=== PATIENT | male | born 1995 | race Two or more races ===

== ENCOUNTER 2017-03-30 16:25 | Emergency (ER) | payer OTHER ==
[~2017-03-30] VITALS: Ht 177.8 cm; Wt 77.1 kg
--- NOTE | 2017-03-30 16:32 | NUR ---
PT BIBRA TO ER BED 11 ACCOMP[address]IED BY PD. HERE FOR MEDICAL AND PSYCH EVAL. PER REPORT, AGRESSIVE HAVING SUICIDAL THOUGHTS YESTERDAY. PT IS DENIES ALLEGATION. ADMITS TO HEROIN AND METH USE. DENIES PAIN. STABLE VITALS. AWAITING MD MCCOLLUM.
--- NOTE | 2017-03-30 16:47 | NUR ---
INDIRA THOMSON AT BEDSIDE FOR EVAL.
--- NOTE | 2017-03-30 17:13 | NUR ---
[employer] AIDE AT BEDSIDE FOR BLOOD DRAW.
[2017-03-30 17:26] LABS: BASOPHILS % (AUTO) 0.7 % (0.0-2.0); EOSINOPHILS # (AUTO) 0.2 /CMM (0.0-0.7); EOSINOPHILS % (AUTO) 2.3 % (0.0-6.0); HEMATOCRIT 47 % (39-51); HEMOGLOBIN 15.8 g/dL (13.5-17.5); LYMPHOCYTES # (AUTO) 1.9 /CMM (0.8-4.8); LYMPHOCYTES % (AUTO) 27.1 % (20.0-44.0); MEAN CORPUSCULAR HEMOGLOBIN 31 PG (26.0-33.0); MEAN CORPUSCULAR HGB CONC 34 g/dl (31.0-36.0); MEAN CORPUSCULAR VOLUME 91 fL (80-96); MONOCYTES # (AUTO) 0.7 /CMM (0.1-1.30); MONOCYTES % (AUTO) 9.5 % (2.0-12.0); NEUTROPHILS # (AUTO) 4.3 /CMM (1.8-8.9); NEUTROPHILS % (AUTO) 60.4 % (43.0-81.0); PLATELET COUNT (AUTO) 353 /CMM (150-450); RDW COEFFICIENT OF VARIATION 13.2 (11.5-15.0); RED BLOOD CELL COUNT(AUTO) 5.17 MIL/uL (4.5-6.0); WHITE BLOOD COUNT (AUTO) 7.1 K/uL (4.3-11.0)
[2017-03-30 17:27] LABS: CALCIUM, SERUM 9.4 mg/dL (8.5-10.1); CARBON DIOXIDE 31 mmol/L (21-32); CHLORIDE 97 mmol/L (98-107); GLUCOSE 99 mg/dL (74-106); POTASSIUM 4.2 mmol/L (3.5-5.1); SODIUM SERUM 134 mmol/L (136-145); UREA NITROGEN, BLOOD 17 mg/dL (7-18)
[2017-03-30 17:31] LABS: INR 0.95 (0.87-1.13); PROTHROMBIN TIME 9.9 SECS (9.5-12.7)
[2017-03-30 17:32] LABS: ALANINE AMINOTRANSFERASE 142 U/L (12-78); ALBUMIN 4.1 g/dL (3.4-5.0); ALCOHOL, BLOOD < 3 mg/dL (0-0); ALKALINE PHOSPHATASE 95 U/L (46-116); ASPARTATE AMINOTRANSFERASE 52 U/L (15-37); BILIRUBIN,DIRECT 0.1 mg/dL (0.0-0.2); BILIRUBIN,TOTAL 0.6 mg/dL (0.2-1.0); SALICYLATE 3.1 mg/dL (2.8-20.0); TOTAL PROTEIN, SERUM 7.6 g/dL (6.4-8.2)
[2017-03-30 17:34] LABS: ACETAMINOPHEN < 2 ug/ml (10-30)
[2017-03-30 17:36] LABS: APPEARANCE,URINE Clear (CLEAR); BILIRUBIN,URINE SMALL (NEGATIVE); BLOOD, URINE Negative Ery/uL (NEGATIVE); COLOR,URINE Yellow (YELLOW); KETONES,URINE Negative (NEGATIVE); LEUKOCYTE ESTERASE ,URINE Negative (NEGATIVE); NITRITE, URINE Negative (NEGATIVE); PH,URINE 5.5 (5.0-8.0); PROTEIN,URINE Negative (NEGATIVE); UGLUCOSE Negative (NEGATIVE)
[2017-03-30 17:48] LABS: BACTERIA,URINE Few /HPF (None Seen); SQUAMOUS EPITHELIAL CELL,UR Few /HPF (None Seen); WBC,URINE 0-2 /HPF (0-3)
--- NOTE | 2017-03-30 18:07 | NUR ---
PET NOTIFIED ETA 1 HR
[2017-03-30] MEDS ORDERED: LORAZEPAM INJ 2 MG/ML VIAL ONE ×2 (19:49→21:06)
--- NOTE | 2017-03-30 19:52 | NUR ---
PT STARTED TO GET AGITATED. INDIRA THOMSON MADE AWARE. ATIVAN 2MG IM GIVEN. SEE EMAR.
[2017-03-30] MEDS ORDERED: LORAZEPAM INJ 2 MG/ML VIAL IM ONE ×2 (20:00→21:30)
--- NOTE | 2017-03-30 20:53 | NUR ---
CALLED [facility] FOR TRANSPORT TO [facility] [place] 90 MIN
--- NOTE | 2017-03-30 21:21 | NUR ---
CALLED [facility] FOR TRANSPORT TO [facility] [place] 11PM
[2017-03-30 22:30] VITALS: BP 134/64
--- NOTE | 2017-03-30 23:18 | NUR ---
PT TRANSPORTED TO [facility]. STABLE CONDITION.
== END 2017-03-30 23:23 ==
LOC: ER 16:27
DX: F28 Other psychotic disorder not due to a substance or known physiological condition (principal); F15.10 Other stimulant abuse, uncomplicated; F11.10 Opioid abuse, uncomplicated
CPT/HCPCS: 36415; 80048; 80076; 80305; 80329; 81001; 85025; 85730; 96372 ×2; 99285; A4606; G0480 ×2; J2060 ×2; Z7610; 81000-TC